=== PATIENT | male | born 1985 | race Caucasian/White ===

== ENCOUNTER 2017-02-23 07:39 | Emergency (ER) | payer OTHER ==
[~2017-02-23] VITALS: Ht 180.3 cm; Wt 109.4 kg
--- NOTE | 2017-02-23 08:29 | REP ---
CT Head without contrast HISTORY: Trauma COMPARISON: None There is no intraparenchymal hemorrhage, acute infarct, mass or midline shift. The ventricular system is normal in appearance. There is no extra cerebral collection. There is no fracture. The visualized sinuses are clear. IMPRESSION: There is no intracranial lesion. Signed by Lionel Kelly MD 02/23/2017 08:20 A
[2017-02-23] MEDS ORDERED: AUGM875T28 PO (09:02)
[2017-02-23 09:10] VITALS: BP 146/91
== END 2017-02-23 09:18 | disposition home or self-care (01) ==
LOC: M ED 07:39
DX: S00.03XA Contusion of scalp, initial encounter (principal); W19.XXXA Unspecified fall, initial encounter; Y92.410 Unspecified street and highway as the place of occurrence of the external cause; Y93.89 Activity, other specified; Y99.8 Other external cause status; H66.93 Otitis media, unspecified, bilateral; F17.210 Nicotine dependence, cigarettes, uncomplicated

== ENCOUNTER → 2017-08-06 | Outpatient (REF) | payer OTHER ==
[2017-08-06 17:24] LABS: PLATELET COUNT, AUTOMATED 311 10^3/uL (150-450)
[2017-08-06 17:37] LABS: COLLAGEN EPINEPHRINE 217 SECONDS (74-162)
[2017-08-06 18:15] LABS: COLLAGEN ADP 105 SECONDS (56-103)
[2017-08-06 18:30] LABS: INR 0.85; PROTHROMBIN TIME 11.6 SECONDS (12.4-14.5)
[2017-08-06 18:31] LABS: PARTIAL THROMBOPLASTIN TIME 28.6 SECONDS (26.8-37.9)
== END ==
LOC: M LABDRAW1 17:01
DX: Z79.01 Long term (current) use of anticoagulants (principal)
CPT/HCPCS: 85049

== ENCOUNTER → 2017-08-07 | Outpatient (CLI) | payer OTHER ==
[2017-08-07 13:40] LABS: COLLAGEN EPINEPHRINE 86 SECONDS (74-162)
== END ==
LOC: M LAB 12:38
DX: M51.27 Other intervertebral disc displacement, lumbosacral region (principal); M47.897 Other spondylosis, lumbosacral region; M51.37 Other intervertebral disc degeneration, lumbosacral region; M48.07 Spinal stenosis, lumbosacral region
CPT/HCPCS: 36415

== ENCOUNTER → 2017-12-18 | Outpatient (REF) | payer OTHER ==
[2017-12-18 11:31] LABS: PLATELET COUNT, AUTOMATED 350 10^3/uL (150-450)
[2017-12-18 11:46] LABS: INR 0.85; PROTHROMBIN TIME 11.7 SECONDS (12.1-14.4)
[2017-12-18 11:47] LABS: PARTIAL THROMBOPLASTIN TIME 29.6 SECONDS (25.4-37.6)
[2017-12-18 12:02] LABS: COLLAGEN EPINEPHRINE 102 SECONDS (74-162)
== END ==
LOC: M LABDRAW1 08:05
DX: M51.26 Other intervertebral disc displacement, lumbar region (principal)